=== PATIENT | female | born 1995 | race American Indian/Alaskan Native ===

== ENCOUNTER 2017-02-13 16:23 | Emergency (ER) | payer SELFPAY ==
[2017-02-13 17:28] VITALS: BP 115/76
--- NOTE | 2017-02-13 19:07 | XRay Report ---
FINAL REPORT PROCEDURE: XR FINGER(S) 2+V LT TECHNIQUE: Three views of the left thumb are obtained HISTORY: THUMB INJURY pain COMPARISON: No prior studies are available for comparison. FINDINGS: There is no fracture or dislocation. No arthritic changes are seen. There may be mild soft tissue swelling. IMPRESSION: No fracture is seen.
--- NOTE | 2017-02-13 20:19 | Emergency Department Report ---
ED Upper Extremity Inj HPI - General Chief Complaint: Extremity Injury, Upper Stated Complaint: POSS. LEFT THUMB FX. Source: patient Mode of arrival: Ambulatory Limitations: No Limitations - History of Present Illness Initial Comments: 21 y/o F with no signficant PMHx presents with pain of her left thumb, she states that she was taking off her socks real fast in the shower yesterday and states that she felt like she heard a pop and has 6/10 in severity pain at this time. She states that she took some ibuprofen at home that helped with the pain. She states that she is just concerned and wants to make sure that it is not broken. She denies any numbness or tingling to the site. She reports some swelling and redness at the site. She states that she is able to move the joint but has some pain at the wrist and at the proximal joint of the left thumb. NKDA. LEA Complaint: Injury to:: finger (left thumb) -: days(s) (1 day) Other Extremity Injury: Fingers: Left, Wrist: Left Other Injuries: none Place: home Severity scale (0 -10): 6 Improves With: immobilization Worsens With: movement of extremity Treatments Prior to Arrival: NSAIDS - Related Data Previous Rx's Medication Instructions Recorded Last Taken Type Ibuprofen [Motrin 600 MG tab] 600 mg PO Q8H PRN #15 tablet 02/13/17 Unknown Rx Allergies Allergy/AdvReac Type Severity Reaction Status Date / Time No Known Allergies Allergy Verified 02/13/17 17:23 ED Review of Systems ROS: Stated complaint: POSS. LEFT THUMB FX. Other details as noted in HPI Constitutional: denies: chills, fever Eyes: denies: eye pain, eye discharge, vision change ENT: denies: ear pain, throat pain Respiratory: denies: cough, shortness of breath, wheezing Cardiovascular: denies: chest pain, palpitations Musculoskeletal: joint swelling, other (left thumb, redness, pain, and swelling) Skin: other (redness and swelling- left thumb) Neurological: denies: headache, weakness, paresthesias Psychiatric: denies: anxiety, depression ED Past Medical Hx - Past Medical History Previous Medical History?: No - Surgical History Past Surgical History?: No - Social History Smoking Status: Never Smoker Substance Use Type: None - Medications Home Medications: Home Medications Medication Instructions Recorded Confirmed Last Taken Type Ibuprofen [Motrin 600 MG tab] 600 mg PO Q8H PRN #15 tablet 02/13/17 Unknown Rx ED Physical Exam - General Limitations: No Limitations General appearance: alert, in no apparent distress - Head Head exam: Present: atraumatic, normocephalic - Eye Eye exam: Present: normal appearance - Respiratory Respiratory exam: Present: normal lung sounds bilaterally. Absent: respiratory distress - Cardiovascular Cardiovascular Exam: Present: regular rate, normal rhythm. Absent: systolic murmur, diastolic murmur, rubs, gallop - Extremities Exam Extremities exam: Present: other (there was ttp at the left thumb metacarpal and the IP joint, there is swelling and mild redness noted at this site, pt is able to abduct/adduct the thumb, she is able to extend, mild limitation with flexion, there is able some ttp at the left medial aspect of the wrist, no swelling, redness or bruising noted here, there is no snuffbox ttp, pulses are 2 +, sensation is WNL, auditor tax strength 3/5 of the left hand) - Expanded Upper Extremity Exam Left Forearm Wrist exam: Present: full ROM Hand Wrist exam: Present: normal inspection, full ROM, tenderness (noted at the medial aspect of the left wrist), other (no swelling, redness, or bruising) Neuro motor exam: Present: thumb opposition intact, thumb IP flexion intact ( mildly limited), thumb adduction intact Vascular: Present: normal capillary refill - Neurological Exam Neurological exam: Present: alert, oriented X3, normal gait - Psychiatric Psychiatric exam: Present: normal affect, normal mood - Skin Skin exam: Present: warm, dry, intact, normal color. Absent: rash ED Course Vital Signs 02/13/17 17:24 Temperature 98.3 F Pulse Rate 75 Respiratory 16 Rate Blood Pressure 115/76 O2 Sat by Pulse 98 Oximetry ED Medical Decision Making - Radiology Data Radiology results: report reviewed, image reviewed left thumb XR- no fractures/dislocation/arthritic changes seen, mild soft tissue swelling noted. - Medical Decision Making Patient was nontoxic in appearance throughout stay. XR was unremarkable for fractures or dislocations. Pt was educated that this is most likelt a sprain or strain of the finger, she was offered pain medications in the ED but denied. She was discharged home with Ibuprofen 600 mg TID and an ARTURO wrap to stabilize the joint. Pt was told to apply ice to the area and rest it. Orthopedic referral provided for continued care. Pt was discharged in stable condition, alert and oriented, and in no acute resp distress at this time. Critical care attestation.: If time is entered above; I have spent that time in minutes in the direct care of this critically ill patient, excluding procedure time. ED Disposition Clinical Impression: Strain of left thumb Disposition: DC- TO HOME OR SELFCARE Is pt being admited?: No Does the pt Need Aspirin: No Condition: Stable Instructions: Ibuprofen (By mouth), Finger Sprain (ED) Prescriptions: Ibuprofen [Motrin 600 MG tab] 600 mg PO Q8H PRN #15 tablet PRN Reason: Pain Referrals: PRIMARY CAREMD [Primary Care Provider] - 3-5 Days SYEDA BRANDON MD [Staff Physician] - 3-5 Days [facility] [Outside] - 3-[address] [facility] [Outside] - 3-5 Days Forms: Work/School Release Form(ED)
== END 2017-02-13 20:30 | disposition home or self-care (01) ==
LOC: ED 16:23
DX: S56.312A Strain of extensor or abductor muscles, fascia and tendons of left thumb at forearm level, initial encounter (principal); X58.XXXA Exposure to other specified factors, initial encounter; Y93.89 Activity, other specified; Y99.8 Other external cause status; Y92.098 Other place in other non-institutional residence as the place of occurrence of the external cause
CPT/HCPCS: 99283